=== PATIENT | male | born 1990 | race Hispanic/Latino ===

== ENCOUNTER 2023-12-09 12:36 | Emergency (ER) | payer OTHER ==
[~2023-12-09] VITALS: Ht 167.6 cm; Wt 107.5 kg
[2023-12-09 13:22] VITALS: BP 135/94; PULSE 92; RESP 18
[2023-12-09] MEDS ORDERED: ACETAMINOPHEN WITH CODEINE 1 TAB TAB PO ONE (16:00)
== END 2023-12-09 16:47 | disposition left against medical advice (07) ==
LOC: EDH 12:36
DX: R10.9 Unspecified abdominal pain (principal); Z53.21 Procedure and treatment not carried out due to patient leaving prior to being seen by health care provider
CPT/HCPCS: 99281